=== PATIENT | female | born 1965 | race Caucasian/White ===

== ENCOUNTER → 2023-05-26 17:05 | Outpatient (REF) | payer OTHER, SELFPAY | LOC: HWWDC 17:05 | PROVIDERS: ATTENDING PHYSICIAN Obstetrics & Gynecology; FAMILY PHYSICIAN Family Medicine | DX: Z12.31 Encounter for screening mammogram for malignant neoplasm of breast (principal) | CPT/HCPCS: 77063; 77067 ==

== ENCOUNTER → 2024-01-08 10:41 | Outpatient (REF) | payer OTHER, SELFPAY | LOC: REG 10:41 | PROVIDERS: ATTENDING PHYSICIAN Physician Assistant; FAMILY PHYSICIAN Family Medicine | DX: R05.3 Chronic cough (principal) | CPT/HCPCS: 71046 ==